=== PATIENT | male | born 1955 | race Caucasian/White ===

== ENCOUNTER 2017-02-21 14:04 | Emergency (ER) | payer BC ==
[~2017-02-21] VITALS: Ht 180.3 cm; Wt 75.1 kg
[2017-02-21 17:19] LABS: HEMATOCRIT 43.8 % (38.0-50.0); MCH 32.5 PG (29.0-34.0); MCHC 34.7 G/DL (30.0-36.0); MCV 93.8 FL (86-99); RBC DIS.WIDTH-CV 12.2 % (11.8-14.6); RBC DIS.WIDTH-SD 42.4 % (39-53); RED BLOOD COUNT 4.67 M/uL (4.00-5.50); WHITE BLOOD COUNT 10.1 K/uL (4.1-10.2)
[2017-02-21 17:39] LABS: TROP-I INTERPRETATION NEGATIVE; TROPONIN-I < 0.01 ng/mL (0.0-0.30)
[2017-02-21 18:42] LABS: MEAN PLAT.VOLUME 11.1 uM^3 (9.0-12.4); PLAT.SUFFICIENCY ADEQUATE; PLATELET COUNT 179 K/uL (156-360)
[2017-02-21] MEDS ORDERED: TESSALON200 MG PO (19:11)
[2017-02-21] MEDS ORDERED: ROBITUSSIN NIG237 ML PO (19:11)
[2017-02-21 19:16] LABS: CHLORIDE 104 mEq/L (99-109); SODIUM 140 mEq/L (136-147)
[2017-02-21 19:18] LABS: GLUCOSE 128 mg/dL (70-99)
[2017-02-21 19:19] LABS: ANION GAP 10 MEQ/L (2-14)
[2017-02-21 19:20] LABS: TOTAL BILIRUBIN 0.9 mg/dL (0.0-1.0)
[2017-02-21 19:21] LABS: ALKALINE PHOSPHATASE 55 IU/L (3-129)
[2017-02-21 19:22] LABS: GFR ESTIMATE (CALCULATED) > 59 mL/min/ (58.99-99999)
[2017-02-21 19:23] LABS: UREA NITROGEN (BUN) 10 mg/dL (9-23)
[2017-02-21] MEDS ORDERED: LISINOPRIL5 MG PO (19:45)
[2017-02-21 20:19] VITALS: BP 170/91
== END 2017-02-21 20:20 | disposition home or self-care (01) ==
LOC: EME 14:04
PROVIDERS: Nurse Practitioner Family
DX: J44.1 Chronic obstructive pulmonary disease with (acute) exacerbation (principal); I10 Essential (primary) hypertension; F17.200 Nicotine dependence, unspecified, uncomplicated; Z71.6 Tobacco abuse counseling
CPT/HCPCS: 71020; 80053; 84484; 85027; 93005; 94640; 99281; 99284; J7512